=== PATIENT | male | born 2000 | race Caucasian/White ===

== ENCOUNTER 2024-05-28 19:53 | Emergency (ER) | payer SELFPAY ==
[2024-05-29] MEDS: Acetaminophen 500 MG Tab PO ONE (01:56)
[2024-05-29] MEDS: Ibuprofen 600 MG Tab PO ONE (01:56)
[2024-05-29] MEDS: Bacitracin Oint 1 GM U/D Packet TOP ONE (01:57)
[2024-05-29] MEDS: Diphtheria,Pertussis(Acell),Tetanus Vaccine 0.5 ML Syringe IM ONE (01:58)
[2024-05-29] MEDS: Lidocaine 1% with EPINEPHrine 1:200,000 30 ML SDV INJECT ONE (03:40)
== END 2024-05-29 04:33 | disposition home or self-care (01) ==
LOC: MW.ED 19:53
DX: S61.311A Laceration without foreign body of left index finger with damage to nail, initial encounter (principal); F17.210 Nicotine dependence, cigarettes, uncomplicated; Z23 Encounter for immunization; W26.0XXA Contact with knife, initial encounter; Y93.89 Activity, other specified
CPT/HCPCS: 12001; 90471; 99282; A9270; J3490; 99283

== ENCOUNTER 2024-10-29 11:31 | Emergency (ER) | payer SELFPAY | END 2024-10-29 13:44 | disposition home or self-care (01) | LOC: MW.ED 11:31 | DX: J02.9 Acute pharyngitis, unspecified (principal); Z79.899 Other long term (current) drug therapy | CPT/HCPCS: 87426-QW; 87651; 99282; 99283 ==